=== PATIENT | male | born 1990 | race Asian ===

== ENCOUNTER 2016-09-30 11:03 | Emergency (ER) | payer MEDICAID, OTHER ==
[~2016-09-30] VITALS: Ht 167.6 cm; Wt 59.1 kg
[~2016-09-30 11:03] MED LIST: ARIP10TA14 PO; SERT50TA12 PO
[2016-09-30] MEDS ORDERED: BENZ1TAB10 PO (11:17)
[2016-09-30] MEDS ORDERED: HALO1 PO (11:17)
[2016-09-30 12:00] LABS: BASOPHILS % (AUTO) 0.4 % (0.0-2.0); EOSINOPHILS % (AUTO) 0.8 % (1.0-6.0); HEMATOCRIT 43.1 % (41-53); HEMOGLOBIN 14.1 g/dL (13.5-17.5); LYMPHOCYTES # (AUTO) 1.3 K/uL (1.0-4.8); LYMPHOCYTES % (AUTO) 16.8 % (22.0-44.0); MEAN CORPUSCULAR HGB CONC 32.7 G/dL (31.0-37.0); MEAN CORPUSCULAR VOLUME 92 fL (80-100); MONOCYTES # (AUTO) 0.3 K/uL (0.1-1.0); MONOCYTES % (AUTO) 3.3 % (2.0-9.0); NEUTROPHILS % (AUTO) 78.7 % (40.0-70.0); PLATELET COUNT (AUTO) 266 K/uL (150-450); RED CELL DISTRIBUTION WIDTH 13.7 % (11.5-14.5); WHITE BLOOD COUNT (AUTO) 7.6 K/uL (4.5-11.0)
[2016-09-30 12:09] LABS: ANION GAP 6 mmol/L (8-16); CALCIUM, TOTAL 8.7 mg/dL (8.8-10.5); CARBON DIOXIDE 32 mmol/L (22-29); CHLORIDE 102 mmol/L (98-107); GLOMERULAR FILTR. RATE CALC > 60 mL/min (>60); POTASSIUM 4.1 mmol/L (3.5-5.1); SODIUM SERUM 140 mmol/L (136-145); UREA NITROGEN, BLOOD 12 mg/dL (7-18)
[2016-09-30 12:16] LABS: ALANINE AMINOTRANSFERASE 33 U/L (12-78); ALBUMIN 4.1 g/dL (3.4-5.0); ASPARTATE AMINOTRANSFERASE 28 U/L (15-37); BILIRUBIN,TOTAL 0.4 mg/dL (0.1-1.0); TOTAL PROTEIN, SERUM 7.6 g/dL (6.4-8.2)
[2016-09-30] MEDS ORDERED: HydrOXYzine PAMOATE 50 MG CAPSULE PO ONE (14:00)
[2016-09-30 14:22] VITALS: BP 118/75
== END 2016-09-30 14:30 | disposition home or self-care (01) ==
LOC: EEVIPCON 11:04 → EMS 11:04
DX: F20.9 Schizophrenia, unspecified (principal); F32.9 Major depressive disorder, single episode, unspecified
CPT/HCPCS: 36415; 80053; 80307; 85025; 99284; G0480

== ENCOUNTER 2017-07-28 16:48 | Emergency (ER) | payer OTHER ==
[~2017-07-28] VITALS: Ht 167.6 cm; Wt 60.0 kg
[~2017-07-28 16:48] MED LIST changes: -ARIP10TA14 PO; +ARIP10TA8 PO; +BENZ1TAB10 PO; +HALO1 PO
[2017-07-28] MEDS ORDERED: DiphenhydrAMINE HCL 25 MG CAPSULE PO ONE (18:30)
[2017-07-28] MEDS ORDERED: PredniSONE 20 MG TABLET PO ONE (18:30)
[2017-07-28 19:10] VITALS: BP 118/75
== END 2017-07-28 19:29 | disposition home or self-care (01) ==
LOC: EMS 16:50
DX: T78.40XA Allergy, unspecified, initial encounter (principal); R21 Rash and other nonspecific skin eruption
CPT/HCPCS: 99283; J7512

== ENCOUNTER 2022-07-27 20:28 | Emergency (ER) | payer OTHER ==
[~2022-07-27] VITALS: Ht 167.6 cm; Wt 69.0 kg
[2022-07-27 21:15] LABS: COVID AG,FIA SOURCE NASOPHARYNGEAL
[2022-07-27 21:30] LABS: RAPID GROUP A STREP NEGATIVE (NEGATIVE)
[2022-07-27 21:39] LABS: INFLUENZA TYPE A NEGATIVE FOR TYPE A (NEGATIVE); INFLUENZA TYPE B NEGATIVE FOR TYPE B (NEGATIVE)
[2022-07-27 21:53] VITALS: BP 116/71
[2022-07-27] MEDS ORDERED: NIRM1TAB PO (21:58)
[2022-07-27] MEDS ORDERED: IBUP-2070 PO (21:59)
[2022-07-27] MEDS ORDERED: ACET-3385 PO (21:59)
== END 2022-07-27 21:59 | disposition home or self-care (01) ==
LOC: EMS 20:41
DX: U07.1 COVID-19 (principal); F20.9 Schizophrenia, unspecified; F32.A Depression, unspecified; Z20.822 Contact with and (suspected) exposure to COVID-19
CPT/HCPCS: 87430; 87804; 99283